=== PATIENT | female | born 1955 | race Caucasian/White ===

== ENCOUNTER → 2018-03-14 | Outpatient (CLI) | payer BC | LOC: MC.RAD 09:40 | DX: Z12.31 Encounter for screening mammogram for malignant neoplasm of breast (principal) ==

== ENCOUNTER → 2018-09-19 | Outpatient (CLI) | payer MEDICARE, OTHER | LOC: COL.RAD 07:39 | DX: Z01.812 Encounter for preprocedural laboratory examination (principal); K52.89 Other specified noninfective gastroenteritis and colitis; K92.1 Melena | CPT/HCPCS: Q9967 ==

== ENCOUNTER 2020-05-21 20:10 | Emergency (ER) | payer MEDICARE, OTHER ==
[~2020-05-21] VITALS: Ht 167.6 cm; Wt 80.9 kg
[2020-05-21 20:22] VITALS: TEMP 99.4
[2020-05-21 20:53] LABS: BASO % 0.5 % (0.0-2.0); EOS # 0.1 (0.0-0.7); EOS % 1.3 % (0-4.0); GRAN # 2.2 (1.4-6.5); GRAN % 57.4 % (42.2-75.2); HEMATOCRIT 45.9 % (37.0-47.0); HEMOGLOBIN 15.7 g/dl (12.5-16.0); LYMPH # 1.2 (1.2-3.4); MEAN CELL VOLUME 91 fl (80.0-100.0); MEAN CORPUSCULAR HEMOGLOBIN 31 pg (27.0-31.0); MEAN CORPUSCULAR HGB CONC 34 g/dl (33.0-37.0); MEAN PLATELET VOLUME 9.1 fl (7.4-10.4); MONO # 0.4 (0.1-0.6); MONO % 9.5 % (1.7-9.3); PLATELET COUNT 169 K/mm3 (130-400); RED BLOOD COUNT 5.06 M/mm3 (4.10-5.30); REDCELL DISTRIBUTION WIDTH-CV 11.9 % (11.5-14.5)
[2020-05-21 21:05] LABS: ALBUMIN 4.3 gm/dL (3.5-5.0); BILIRUBIN,TOTAL 0.4 mg/dL (0.0-1.0); CALCIUM 10.1 mg/dL (8.4-10.2); CREATININE, serum 0.9 (0.52-1.25); POTASSIUM 3.7 mmol/L (3.4-5.0); TOTAL PROTEIN 7.7 gm/dL (6.4-8.2)
[2020-05-21 21:15] LABS: LIPASE 95 U/L (23-300)
[2020-05-21 21:28] LABS: TROPONIN-I < 0.012 ng/mL (0.000-0.035)
[2020-05-21 21:50] LABS: COLLECTION METHOD CLEAN CATCH
[2020-05-21 21:59] LABS: MUCOUS Present /lpf; PH 5 (5-8); SQUAMOUS EPITHELIAL 0-2 /hpf; URINE APPEARANCE Hazy; URINE BACTERIA None Seen /hpf; URINE BILIRUBIN Negative (NEGATIVE); URINE BLOOD Negative (NEGATIVE); URINE COLOR Amber; URINE GLUCOSE Negative (NEGATIVE); URINE KETONE Negative (NEGATIVE); URINE LEUKOCYTE ESTERASE Negative (NEGATIVE); URINE NITRATE Negative (NEGATIVE); URINE PROTEIN(semi-quant) Negative (NEGATIVE); URINE UROBILINOGEN Negative (NEGATIVE)
[2020-05-21 23:18] VITALS: BP 131/82; PULSE 75
== END 2020-05-21 23:20 | disposition home or self-care (01) ==
LOC: COL.ER 20:10
PROVIDERS: Physician Assistant
DX: U07.1 COVID-19 (principal)
CPT/HCPCS: J1100; J7030

== ENCOUNTER 2023-06-13 14:36 | Outpatient (CLI) | payer MEDICARE, OTHER ==
[~2023-06-13] VITALS: Ht 167.6 cm; Wt 79.8 kg
[2023-06-13] MEDS ORDERED: Denosumab 60 MG/ML SYRINGE SQ ONE (15:00)
[2023-06-13] MEDS ORDERED: ARMOUR THYROID90 MG PO (15:05)
[2023-06-13] MEDS ORDERED: MAXALT5 MG PO (15:05)
[2023-06-13 15:06] VITALS: BP 133/83; PULSE 80; TEMP 98
--- NOTE | 2023-06-13 15:33 | NUR ---
PT TOLERATED INITIAL PROLIA INJECTION WELL. PT OBSERVED FOR 15 MINUTES FOLLOWING INJECTION AND REMAINED FREE FROM SIGNS OF ANAPHYLAXIS AND ADVERSE EFFECTS. PT VS REMAINED WITHIN NORMAL LIMITS. PT FREE FROM ACUTE CONCERNS AND COMPLAINTS AT TIME OF DISCHARGE.
== END 2023-06-13 15:34 | disposition home or self-care (01) ==
LOC: EUO 14:36
DX: M81.0 Age-related osteoporosis without current pathological fracture (principal)
CPT/HCPCS: J0897